=== PATIENT | male | born 1985 | race Hispanic/Latino ===

== ENCOUNTER 2020-03-18 18:17 | Emergency (ER) | payer OTHER ==
[2020-03-18] MEDS ORDERED: KETOROLAC TROMETHAMINE 60 MG/2 ML VIAL ONE (18:44)
== END 2020-03-18 19:53 | disposition home or self-care (01) ==
LOC: EDH 18:17
DX: S62.337A Displaced fracture of neck of fifth metacarpal bone, left hand, initial encounter for closed fracture (principal); W01.198A Fall on same level from slipping, tripping and stumbling with subsequent striking against other object, initial encounter; Y93.89 Activity, other specified; Y92.89 Other specified places as the place of occurrence of the external cause; Y99.8 Other external cause status
CPT/HCPCS: 29125; 73130; 96372; 99283; J1885

== ENCOUNTER 2020-06-12 15:02 | Emergency (ER) | payer MEDICAID ==
[2020-06-12] MEDS ORDERED: ACETAMINOPHEN 325 MG TAB ONE (16:00)
[2020-06-12 16:17] LABS: BASOPHILS % (AUTO) 0.3 % (0.0-5.0); EOSINOPHILS % (AUTO) 0.3 % (0.0-8.0); HEMATOCRIT 45.1 % (42-54); LYMPHOCYTES % (AUTO) 33.1 % (21.0-51.0); MEAN CORPUSCULAR HEMOGLOBIN 31.4 pg (27.0-33.0); MEAN CORPUSCULAR HGB CONC 34.4 g/dL (32.0-36.0); MEAN CORPUSCULAR VOLUME 91.3 fL (79-99); MONOCYTES % (AUTO) 7.2 % (3.0-13.0); PLATELET COUNT (AUTO) 255 K/uL (130-400); RED BLOOD CELL COUNT(AUTO) 4.94 MIL/uL (4.50-6.20); RED CELL DISTRIBUTION WIDTH 13.7 % (11.0-15.5); WHITE BLOOD COUNT (AUTO) 7.2 K/uL (4.8-10.8)
[2020-06-12 16:28] LABS: ABG BASE EXCESS 0.9 mmol/L (-2.0-3.0); ABG HCO3 24.5 mmol/L (21.0-28.0); ABG OXYGEN SATURATION 98.5 % (95.0-99.0); ABG PCO2 36 mmHg (35-48)
[2020-06-12 16:47] LABS: CREATININE 1.1 mg/dL (0.5-1.5)
[2020-06-12 16:52] LABS: ALBUMIN 3.5 g/dL (3.5-5.0); BILIRUBIN,TOTAL 0.4 mg/dL (0.2-1.0)
[2020-06-12 16:56] LABS: B-TYPE NATRIURETIC PEPTIDE < 5 pg/mL (0-100)
== END 2020-06-12 17:46 | disposition home or self-care (01) ==
LOC: EDH 15:02
DX: U07.1 COVID-19 (principal); R06.02 Shortness of breath; Z72.0 Tobacco use
CPT/HCPCS: 36415; 36600; 71045; 80053; 82803; 83605; 83880; 84484; 85025; 87040; 93005

== ENCOUNTER 2020-08-03 08:25 | Emergency (ER) | payer MEDICAID ==
[2020-08-03 08:55] LABS: APPEARANCE,URINE Cloudy (CLEAR); BILIRUBIN,URINE Negative (NEGATIVE); COLOR,URINE Yellow (YELLOW); GLUCOSE, URINE (UA) Negative (NEGATIVE); KETONES,URINE Trace mg/dL (NEGATIVE); LEUKOCYTE ESTERASE ,URINE Negative (NEGATIVE); NITRATE,URINE Negative (NEGATIVE); OCCULT BLOOD,URINE Negative (NEGATIVE); PROTEIN,URINE Negative (NEGATIVE)
[2020-08-03 09:03] LABS: AMPHET/METH SCREEN,URINE NEGATIVE (NEGATIVE); BARBITURATE SCREEN, URINE NEGATIVE (NEGATIVE); BENZODIAZEPINES SCREEN,URINE NEGATIVE (NEGATIVE); CANNABINOID SCREEN,URINE POSITIVE (NEGATIVE); COCAINE SCREEN,URINE NEGATIVE (NEGATIVE); OPIATE SCREEN,URINE NEGATIVE (NEGATIVE); PHENCYCLIDINE SCREEN,URINE NEGATIVE (NEGATIVE)
[2020-08-03 09:07] LABS: BACTERIA,URINE None Seen /HPF (None Seen); RBC,URINE 0-1 /HPF (0-1); SQUAMOUS EPITHELIAL CELL,UR 0-2 /HPF (0-2); WBC,URINE 0-1 /HPF (0-1)
[2020-08-03 09:08] LABS: AMORPHOUS SEDIMENT,UR Many /LPF (None Seen)
== END 2020-08-03 10:44 | disposition left against medical advice (07) ==
LOC: EDH 08:25
DX: M54.5 Low back pain (principal); F14.10 Cocaine abuse, uncomplicated; Z72.0 Tobacco use
CPT/HCPCS: 80305; 81001

== ENCOUNTER 2021-01-28 09:14 | Emergency (ER) | payer MEDICAID ==
[~2021-01-28] VITALS: Ht 172.7 cm; Wt 70.3 kg
[2021-01-28 09:16] VITALS: BP 112/84
[2021-01-28 09:50] VITALS: BP 120/70
[2021-01-28] MEDS ORDERED: ESOM40CA54 PO (10:38)
[2021-01-28] MEDS ORDERED: IBUP-2070 PO (10:38)
[2021-01-28] MEDS ORDERED: KETOROLAC 60 MG VIAL (30MG/ML) ONE (10:40)
[2021-01-28] MEDS ORDERED: HYDROCODONE/ACETAMINOPHEN 5/325 MG TAB ONE (10:40)
== END 2021-01-28 10:49 | disposition home or self-care (01) ==
LOC: EDH 09:14
DX: K21.9 Gastro-esophageal reflux disease without esophagitis (principal); J02.9 Acute pharyngitis, unspecified; Z20.822 Contact with and (suspected) exposure to COVID-19
CPT/HCPCS: 87635; 87880; 99283; C9803; J1885

== ENCOUNTER → 2021-04-24 | Outpatient (CLI) | payer MEDICAID ==
[~2021-04-24] MED LIST: ESOM40CA54 PO; IBUP-2070 PO
== END | disposition home or self-care (01) ==
LOC: RAH 08:49
PROVIDERS: ATTEND Internal Medicine Gastroenterology
DX: K21.9 Gastro-esophageal reflux disease without esophagitis (principal)
CPT/HCPCS: 74240

== ENCOUNTER 2021-10-16 16:01 | Emergency (ER) | payer MEDICAID ==
[~2021-10-16] VITALS: Ht 172.7 cm; Wt 74.8 kg
[2021-10-16 16:45] LABS: BASOPHILS % (AUTO) 0.1 % (0.0-5.0); EOSINOPHILS % (AUTO) 0.1 % (0.0-8.0); HEMATOCRIT 45.1 % (42-54); LYMPHOCYTES % (AUTO) 3.2 % (21.0-51.0); MEAN CORPUSCULAR HEMOGLOBIN 31.1 pg (27.0-33.0); MEAN CORPUSCULAR HGB CONC 34.6 g/dL (32.0-36.0); MEAN CORPUSCULAR VOLUME 89.8 fL (79-99); MONOCYTES % (AUTO) 3.3 % (3.0-13.0); PLATELET COUNT (AUTO) 381 K/uL (130-400); RED BLOOD CELL COUNT(AUTO) 5.02 MIL/uL (4.50-6.20); RED CELL DISTRIBUTION WIDTH 13.4 % (11.0-15.5); WHITE BLOOD COUNT (AUTO) 14.8 K/uL (4.8-10.8)
[2021-10-16 16:56] LABS: CREATININE 0.9 mg/dL (0.5-1.5); POTASSIUM 3.9 mmol/L (3.5-5.1)
[2021-10-16 17:00] LABS: ALBUMIN 3.7 g/dL (3.5-5.0); BILIRUBIN,TOTAL 0.7 mg/dL (0.2-1.0); TOTAL PROTEIN, SERUM 6.7 g/dL (6.0-8.3)
[2021-10-16] MEDS ORDERED: 0.9%NACL 1000ML 1,000 ML IV ONE (17:00)
[2021-10-16] MEDS ORDERED: MORPHINE 2 MG SYG IVP ONE (17:30)
[2021-10-16] MEDS ORDERED: ONDANSETRON 4MG INJ IVP ONE (17:30)
[2021-10-16] MEDS ORDERED: KETOROLAC 15MG/ML VIAL (15MG/ML) IV ONE (17:30)
[2021-10-16 17:32] LABS: APPEARANCE,URINE Clear (CLEAR); BILIRUBIN,URINE Negative (NEGATIVE); COLOR,URINE Yellow (YELLOW); GLUCOSE, URINE (UA) Negative (NEGATIVE); KETONES,URINE >=160 mg/dL (NEGATIVE); LEUKOCYTE ESTERASE ,URINE Negative (NEGATIVE); NITRATE,URINE Negative (NEGATIVE); OCCULT BLOOD,URINE Negative (NEGATIVE); PROTEIN,URINE Trace mg/dL (NEGATIVE)
[2021-10-16 17:41] LABS: AMPHET/METH SCREEN,URINE NEGATIVE (NEGATIVE); BARBITURATE SCREEN, URINE NEGATIVE (NEGATIVE); BENZODIAZEPINES SCREEN,URINE NEGATIVE (NEGATIVE); CANNABINOID SCREEN,URINE POSITIVE (NEGATIVE); COCAINE SCREEN,URINE NEGATIVE (NEGATIVE); OPIATE SCREEN,URINE NEGATIVE (NEGATIVE); PHENCYCLIDINE SCREEN,URINE NEGATIVE (NEGATIVE)
[2021-10-16 17:42] LABS: BACTERIA,URINE Rare /HPF (None Seen); RBC,URINE 0-1 /HPF (0-1); SQUAMOUS EPITHELIAL CELL,UR 0-2 /HPF (0-2); WBC,URINE 0-1 /HPF (0-1)
[2021-10-16] MEDS ORDERED: BACI1CAP6 PO (18:48)
[2021-10-16] MEDS ORDERED: ONDA4TAB10 PO (18:48)
[2021-10-16] MEDS ORDERED: LOPE2 PO (18:48)
[2021-10-16] MEDS ORDERED: DICY20TA2 PO (18:48)
[2021-10-16 18:56] VITALS: BP 133/75
== END 2021-10-16 19:02 | disposition home or self-care (01) ==
LOC: EDH 16:01
DX: K52.9 Noninfective gastroenteritis and colitis, unspecified (principal); Z79.899 Other long term (current) drug therapy
CPT/HCPCS: 36415; 80053; 80305; 81001; 83690; 85025; 96361; 96374; 96375; 99284; J1885; J2405; J7030

== ENCOUNTER 2022-01-24 15:24 | Emergency (ER) | payer MEDICAID ==
[~2022-01-24] VITALS: Ht 172.7 cm; Wt 72.6 kg
[~2022-01-24 15:24] MED LIST changes: +BACI1CAP6 PO; +DICY20TA2 PO; +LOPE2 PO; +ONDA4TAB10 PO
[2022-01-24 15:26] VITALS: BP 123/73
[2022-01-24] MEDS ORDERED: L.E.T. GEL 3ML SYG TP ONE ×2 (16:14→16:30)
[2022-01-24] MEDS ORDERED: IBUPROFEN 800 MG TAB ONE (16:14)
[2022-01-24] MEDS ORDERED: TETANUS/DIPHTHERIA TOXOID [ADULT] 0.5 ML VIAL IM ONE ×2 (16:15→16:30)
[2022-01-24] MEDS ORDERED: IBUPROFEN 800 MG TAB PO ONE (16:30)
[2022-01-24] MEDS ORDERED: ACETAMINOPHEN 500 MG TABLET PO ONE (16:30)
[2022-01-24] MEDS ORDERED: ACET-2247 PO (16:51)
== END 2022-01-24 17:24 | disposition home or self-care (01) ==
LOC: EDH 15:24
DX: S01.01XA Laceration without foreign body of scalp, initial encounter (principal); Z79.899 Other long term (current) drug therapy; W22.8XXA Striking against or struck by other objects, initial encounter; Y93.89 Activity, other specified; Y92.89 Other specified places as the place of occurrence of the external cause; Y99.8 Other external cause status
CPT/HCPCS: 12002; 90471; 90714

== ENCOUNTER 2022-01-31 20:25 | Emergency (ER) | payer MEDICAID ==
[~2022-01-31] VITALS: Ht 172.7 cm; Wt 77.1 kg
[~2022-01-31 20:25] MED LIST changes: +ACET-2247 PO
[2022-01-31 20:29] VITALS: BP 144/82
== END 2022-01-31 21:42 | disposition home or self-care (01) ==
LOC: EDH 20:25
DX: S01.81XD Laceration without foreign body of other part of head, subsequent encounter (principal); Z79.1 Long term (current) use of non-steroidal anti-inflammatories (NSAID); Z79.899 Other long term (current) drug therapy; Z87.19 Personal history of other diseases of the digestive system; X58.XXXD Exposure to other specified factors, subsequent encounter
CPT/HCPCS: 99281

== ENCOUNTER 2022-03-04 03:54 | Emergency (ER) | payer MEDICAID ==
[~2022-03-04] VITALS: Ht 172.7 cm; Wt 69.4 kg
[2022-03-04] MEDS ORDERED: PANTOPRAZOLE 40 MG/VIAL ONE (04:09)
[2022-03-04] MEDS ORDERED: ONDANSETRON 4MG INJ ONE (04:11)
[2022-03-04 04:20] LABS: BASOPHILS % (AUTO) 0.2 % (0.0-5.0); EOSINOPHILS % (AUTO) 0.6 % (0.0-8.0); HEMATOCRIT 46.7 % (42-54); LYMPHOCYTES % (AUTO) 7.2 % (21.0-51.0); MEAN CORPUSCULAR HEMOGLOBIN 30.7 pg (27.0-33.0); MEAN CORPUSCULAR HGB CONC 35.1 g/dL (32.0-36.0); MEAN CORPUSCULAR VOLUME 87.3 fL (79-99); MONOCYTES % (AUTO) 6.9 % (3.0-13.0); NEUTROPHILS % (AUTO) 84.7 % (40.0-77.0); PLATELET COUNT (AUTO) 317 K/uL (130-400); RED BLOOD CELL COUNT(AUTO) 5.35 MIL/uL (4.50-6.20); RED CELL DISTRIBUTION WIDTH 13.7 % (11.0-15.5); WHITE BLOOD COUNT (AUTO) 14.5 K/uL (4.8-10.8)
[2022-03-04 04:30] LABS: CREATININE 1.1 mg/dL (0.5-1.5); POTASSIUM 3.5 mmol/L (3.5-5.1)
[2022-03-04] MEDS ORDERED: 0.9%NACL 1000ML 1,000 ML IV SCH (04:30)
[2022-03-04] MEDS ORDERED: PANTOPRAZOLE 40 MG/VIAL IVP ONE (04:30)
[2022-03-04] MEDS ORDERED: ONDANSETRON 4MG INJ IVP ONE (04:30)
[2022-03-04 04:35] LABS: ALBUMIN 4.2 g/dL (3.5-5.0); TOTAL PROTEIN, SERUM 7.6 g/dL (6.0-8.3)
[2022-03-04] MEDS ORDERED: DICY20TA2 PO (06:01)
[2022-03-04] MEDS ORDERED: ONDA4TAB10 PO (06:01)
[2022-03-04 06:04] VITALS: BP 125/74
== END 2022-03-04 06:18 | disposition home or self-care (01) ==
LOC: EDH 03:54
DX: K52.9 Noninfective gastroenteritis and colitis, unspecified (principal); E86.9 Volume depletion, unspecified; Z79.899 Other long term (current) drug therapy
CPT/HCPCS: 99284; 74176; 96374; 96361; 96375; 80053; 83690; 85025; 36415; J7030; J2405; S0164; C9113

== ENCOUNTER 2022-08-19 11:46 | Emergency (ER) | payer MEDICAID ==
[~2022-08-19] VITALS: Ht 172.7 cm; Wt 68.0 kg
[2022-08-19 12:54] LABS: BASOPHILS % (AUTO) 0.2 % (0.0-5.0); EOSINOPHILS % (AUTO) 0.1 % (0.0-8.0); HEMATOCRIT 43.4 % (42-54); LYMPHOCYTES % (AUTO) 4.3 % (21.0-51.0); MEAN CORPUSCULAR HEMOGLOBIN 31.1 pg (27.0-33.0); MEAN CORPUSCULAR HGB CONC 35.3 g/dL (32.0-36.0); MEAN CORPUSCULAR VOLUME 88.2 fL (79-99); MONOCYTES % (AUTO) 4.6 % (3.0-13.0); NEUTROPHILS % (AUTO) 90.5 % (40.0-77.0); PLATELET COUNT (AUTO) 248 K/uL (130-400); RED BLOOD CELL COUNT(AUTO) 4.92 MIL/uL (4.50-6.20); RED CELL DISTRIBUTION WIDTH 13.9 % (11.0-15.5); WHITE BLOOD COUNT (AUTO) 11.2 K/uL (4.8-10.8)
[2022-08-19 12:56] LABS: APPEARANCE,URINE CLEAR (CLEAR); BILIRUBIN,URINE NEGATIVE (NEGATIVE); COLOR,URINE LIGHT-YELLOW (YELLOW); GLUCOSE, URINE (UA) NEGATIVE (NEGATIVE); KETONES,URINE 10 mg/dL (NEGATIVE); LEUKOCYTE ESTERASE ,URINE NEGATIVE Leu/uL (NEGATIVE); NITRATE,URINE NEGATIVE (NEGATIVE); OCCULT BLOOD,URINE NEGATIVE (NEGATIVE); PROTEIN,URINE NEGATIVE (NEGATIVE); UROBILINOGEN,URINE 0.2 mg/dL (0.2-1.0)
[2022-08-19 12:59] LABS: POTASSIUM 3.2 mmol/L (3.5-5.1)
[2022-08-19 12:59] LABS: RBC,URINE 0-1 /HPF (0-1); WBC,URINE 0-1 /HPF (0-1)
[2022-08-19 13:03] LABS: ALBUMIN 3.7 g/dL (3.5-5.0); TOTAL PROTEIN, SERUM 6.4 g/dL (6.0-8.3)
[2022-08-19] MEDS ORDERED: 0.9%NACL 1000ML 1,000 ML IV ONE ×2 (13:30→15:00)
[2022-08-19] MEDS ORDERED: MORPHINE 4 MG SYG IVP ONE (13:30)
[2022-08-19] MEDS ORDERED: FAMOTIDINE 20MG VIAL IV ONE (13:30)
[2022-08-19] MEDS ORDERED: ONDANSETRON 4MG INJ IVP ONE (13:30)
[2022-08-19] MEDS ORDERED: POTASSIUM BICARB/CIT AC 25 MEQ TABLET.EFF PO ONE (13:30)
[2022-08-19] MEDS ORDERED: DICY20TA2 PO (14:58)
[2022-08-19] MEDS ORDERED: FAMO-136 PO (14:58)
[2022-08-19] MEDS ORDERED: ONDA4TAB10 PO (14:58)
[2022-08-19] MEDS ORDERED: BACI1CAP6 PO (14:58)
[2022-08-19 15:09] VITALS: BP 112/60
[2022-08-19 18:10] LABS: AMPHET/METH SCREEN,URINE NEGATIVE (NEGATIVE); BARBITURATE SCREEN, URINE NEGATIVE (NEGATIVE); BENZODIAZEPINES SCREEN,URINE NEGATIVE (NEGATIVE); CANNABINOID SCREEN,URINE POSITIVE (NEGATIVE); COCAINE SCREEN,URINE NEGATIVE (NEGATIVE); OPIATE SCREEN,URINE NEGATIVE (NEGATIVE); PHENCYCLIDINE SCREEN,URINE NEGATIVE (NEGATIVE)
== END 2022-08-19 15:41 | disposition home or self-care (01) ==
LOC: EDH 11:46
DX: K52.9 Noninfective gastroenteritis and colitis, unspecified (principal); Z79.899 Other long term (current) drug therapy
CPT/HCPCS: 99285; 74176; 96374; 96361; 96375; 80053; 80305; 83690; 85025; 36415; 81001; J7030 ×2; J2405; J2270; S0028; J3490

== ENCOUNTER 2024-03-15 10:03 | Emergency (ER) | payer MEDICAID ==
[~2024-03-15] VITALS: Ht 172.7 cm; Wt 68.0 kg
[~2024-03-15 10:03] MED LIST changes: -ESOM40CA54 PO; +ESOM40CA66 PO; +FAMO-136 PO; +ONDA-243 PO; -ONDA4TAB10 PO
[2024-03-15 10:05] VITALS: BP 107/63; PULSE 56; RESP 16; TEMP 98.1
--- NOTE | 2024-03-15 10:19 | ERN ---
General Chief Complaint: FOOT INJURY/PAIN Stated Complaint: RIGHT FOOT PAIN Time Seen by : 10:06 Time Seen by Midlevel: 10:06 Source: patient History of Present Illness Initial Comments Patient is a 38-year-old male with no significant past medical history presenting with right foot pain. Patient states last night he was running down the stairs when he accidentally hit a vacuum on his way down. He has most of his pain centered around his 2nd and 3rd digit. Denies any other injury. Denies any other concern at this time Allergies: Coded Allergies: No Known Drug Allergies (Unverified Allergy, Unknown, 01/28/21) Home Meds Active Scripts Ketorolac Tromethamine (Ketorolac Tromethamine) 10 Mg Tablet, 10 MG PO BID for 5 Days, #10 TAB Prov:TOMI MEZA 03/15/24 Famotidine (Pepcid) 20 Mg Tablet, 20 MG PO BID, #15 TAB Prov:MIMI CHEEMA 08/19/22 Bacillus Coagulans (Probiotic) 1 Each Capsule.dr, 1 EACH PO DAILY, #30 CAP Prov:MIMI CHEEMA 08/19/22 Dicyclomine HCl (Bentyl) 20 Mg Tab, 20 MG PO TID PRN for ABDOMINAL PAIN, #15 TAB Prov:MIMI CHEEMA 08/19/22 Ondansetron (Ondansetron Odt) 4 Mg Tab.rapdis, 4 MG PO TID PRN for NAUSEA/VOMITING, #10 TAB Prov:MIMI CHEEMA 08/19/22 Dicyclomine HCl (Bentyl) 20 Mg Tab, 20 MG PO TIDP PRN for ABDOMINAL PAIN, #12 TAB 0 Refills Prov:KRISTINA REY MD 03/04/22 Ondansetron (Ondansetron Odt) 4 Mg Tab.rapdis, 4 MG PO TIDP PRN for NAUSEA/VOMITING, #12 TAB 0 Refills Prov:KRISTINA REY MD 03/04/22 Acetaminophen (Tylenol) 325 Mg Tablet, 650 MG PO Q4HPRN, #50 TAB Prov:NORMAN BUCKLEY 01/24/22 Loperamide HCl (Imodium) 2 Mg Cap, 2 MG PO TID PRN for DIARRHEA, #15 CAP Prov:MIMI CHEEMA 10/16/21 Bacillus Coagulans (Probiotic) 1 Each Capsule.dr, 1 EACH PO DAILY, #30 CAP Prov:MIMI CHEEMA [facility] 10/16/21 Dicyclomine HCl (Bentyl) 20 Mg Tab, 20 MG PO TID PRN for ABDOMINAL PAIN, #15 TAB Prov:MIMI CHEEMA [facility] 10/16/21 Ondansetron (Ondansetron Odt) 4 Mg Tab.rapdis, 4 MG PO TID, #15 TAB Prov:FITTINGMIMI [facility] 10/16/21 Esomeprazole Magnesium (Esomeprazole Magnesium) 40 Mg Capsule.dr, 40 MG PO DAILY, #30 CAP Prov:YANDY THOMPSON MD 01/28/21 Ibuprofen (Ibuprofen) 600 Mg Tablet, 600 MG PO Q6H PRN for Pain/fever, #30 TAB Prov:YANDY THOMPSON MD 01/28/21 Past Medical History Past Medical History: GERD Medical History Other: GASTRITIS Past Surgical History: None Family History Family History: Negative Social History Social History: Lives with family, Other ROS Dictation CONSTITUTIONAL: Negative except for HPI HEAD/FACE: Negative except for HPI EENT: Negative except for HPI RESPIRATORY: Negative except for HPI GASTROINTESTINAL/ABDOMINAL: Negative except for HPI GENITOURINARY: Negative except for HPI MUSCULOSKELETAL: Negative except for HPI INTEGUMENTARY: Negative except for HPI NEUROLOGICAL/PSYCH: Negative except for HPI HEMATOLOGIC/LYMPHATIC: Negative except for HPI All Systems Negative, Except as noted above. 13 point review of systems assessed and all negative except for above. Physical Exam Physical Exam Dictation PHYSICAL EXAM: GENERAL: alert,, awake oriented x 3 HEENT: EOMI, Sclera non icteric, moist mucosa NECK: Supple, no JVD, trachea midline LUNGS: Clear breath sounds bilaterally. No wheezes HEART: Regular rate and rhythm. Normal S1 and S2, without murmurs ABD: Abdomen soft, nontender. Bowel sounds present EXT: Tenderness, swelling, and bruising over the proximal 3rd digit, range of motion restricted secondary to pain, normal capillary refill, sensation intact, NEURO: Alert and oriented to person, follows commands MDM MDM: Patient is a 38-year-old male with no significant past medical history presenting with right foot pain. Patient states last night he was running down the stairs when he accidentally hit a vacuum on his way down. He has most of his pain centered around his 2nd and 3rd digit. Denies any other injury. Denies any other concern at this time. On physical examination patient has bruising/tenderness/swelling to the proximal 3rd digit. He has full range motion of all his toes. Sensation is intact. Capillary refill is normal. 2+ PT, DP pulses. X-ray of the right foot reveals a subtle nondisplaced fracture of the right 3rd toe. Toe was ganesh-taped and patient was advised to wear a hard-soled shoe. Patient agrees and will be discharged home. Differential diagnosis: There are no social concerns with this patient. Prescription drug management Prescriptions will include: Toradol Medical management and examination interpretation discussions were had by me with other qualified healthcare professionals as indicated for the patient's care. ED Course Orders Procedure Category Date Status Time Foot Comp 3+Vws Rt RAD 03/15/24 Resulted 10:10 Ketorolac PHA 03/15/24 Complete Tromethamine 30mg/Ml 11:00 *Nursing CPOE 03/15/24 Transmitted Communication: 10:31 Current Medications Medications (Trade) Dose Ordered Sig/Nury Route PRN Reason Start Time Stop Time Status Last Admin Dose Admin Ketorolac Tromethamine (toRADol) 30 mg ONCE ONCE IM 03/15/24 11:00 03/15/24 11:01 DC Vital Signs Date Time Temp Pulse Resp B/P (MAP) Pulse Ox O2 Delivery O2 Flow Rate FiO2 03/15/24 10:05 98.1 56 16 107/63 96 Room Air 0 [place] [id number] [place] [id number] IMAGING REPORT Signed PATIENT: ANURAG CLEMENTS MR#: [id number] : 1985 SEX: M AGE: 38 LOCATION: [facility] ORDER 1011 STATUS: REG ER REPORT#: [id number] SERVICE 1010 REASON: right foot pain ORDERING PHYSICIAN: TOMI MEZA PROCEDURE: FT 3VW RT - FOOT COMP 3+VWS RT FOOT COMP 3+VWS RT HISTORY: Right foot pain COMPARISON: None TECHNIQUE: 3 images of right foot were obtained. FINDINGS: There is no acute displaced fracture or dislocation. There is soft tissue swelling. Degenerative changes are seen. IMPRESSION: 1. Findings as described above. DICTATED BY: JAZZ JURADO MD DATE: 03/15/241029 ELECTRONICALLY SIGNED BY: JAZZ JURADO MD DATE: 03/15/24 1033 DX & DISP Disposition: Discharge Departure Impression: Primary Impression: Toe fracture, right Condition: Stable Scripts Ketorolac Tromethamine (Ketorolac Tromethamine) 10 Mg Tablet 10 MG PO BID for 5 Days, #10 TAB Prov: TOMI MEZA 03/15/24 Additional Instructions: Your x-ray of the right foot reveals a small subtle fracture in the right 3rd toe. For these types of injuries there was no need for surgery or emergent intervention. Your toe was gaensh-taped together. Please wear a hard sole shoe for supportive management. Follow up with your primary care provider in 2-3 days for repeat evaluation. I have given you a prescription for Toradol which should help you with your pain. If you develop any new or worsening symptoms please report to the ER for further evaluation. Referrals: MARTHA MARIA (PCP) Time of Disposition: 11:08 I have reviewed the case, Diagnosis and Plan I performed the substantive portion of the visit. I have reviewed and personally made and approve the management plan that is documented in the note by myself or the TATE. I acknowledge for responsibility for the patient's management plan. TOMI MEZA Mar 15, 2024 10:19
--- NOTE | 2024-03-15 10:33 | HMCIMG ---
FOOT COMP 3+VWS RT HISTORY: Right foot pain COMPARISON: None TECHNIQUE: 3 images of right foot were obtained. FINDINGS: There is no acute displaced fracture or dislocation. There is soft tissue swelling. Degenerative changes are seen. IMPRESSION: 1. Findings as described above.
[2024-03-15] MEDS ORDERED: KETO10TA2 PO (11:10)
[2024-03-15] MEDS: ketOROlac 30MG VIAL (30MG/ML) IM ONE (11:42)
== END 2024-03-15 12:01 | disposition home or self-care (01) ==
LOC: EDH 10:03
DX: S92.521A Displaced fracture of middle phalanx of right lesser toe(s), initial encounter for closed fracture (principal); K21.9 Gastro-esophageal reflux disease without esophagitis; Z79.899 Other long term (current) drug therapy; W22.09XA Striking against other stationary object, initial encounter; Y93.02 Activity, running; Y92.89 Other specified places as the place of occurrence of the external cause; Y99.8 Other external cause status
CPT/HCPCS: 99283; 73630; 96372; J1885

== ENCOUNTER 2024-05-28 12:15 | Emergency (ER) | payer MEDICAID ==
[~2024-05-28] VITALS: Ht 172.7 cm; Wt 70.3 kg
[~2024-05-28 12:15] MED LIST changes: +KETO10TA2 PO
[2024-05-28] MEDS ORDERED: NEOMY SULF/BACITRA/POLYMYXIN B 1 EACH PACKET TP ONE (12:30)
[2024-05-28] MEDS ORDERED: ibuPROFEN 800 MG TAB PO ONE (12:30)
[2024-05-28] MEDS ORDERED: LIDOCAINE HCL 1% 20 ML VIAL INJ SCH (12:30)
--- NOTE | 2024-05-28 12:34 | ERN ---
ED Note History of Present Illness Stated Complaint: OTHER Chief Complaint: Foreign Body Time Seen by MD: 12:28 Dictation: PATIENT IS A 38-YEAR-OLD MALE HERE WITH COMPLAINTS OF A QUESTIONABLE FOREIGN BODY/GREAT FOOD TREE THORN TO THE RIGHT OCCIPUT AREA OF HIS SCALP1 HOUR PRIOR TO ARRIVAL. HE WAS WORKING AROUND THE TREAT WHEN HE BUMPED INTO IT AND FELT IT BREAK OFF UNDER HIS SKIN. HE DOES HAVE A TENDER AREA TO THE RIGHT PARIETAL AREA WITH POSSIBLE FOREIGN BODY. TETANUS SHOT IS UP TO DATE HE HAS NOT TAKEN ANYTHING PRIOR TO ARRIVAL FOR PAIN Allergies: Coded Allergies: No Known Drug Allergies (Unverified Allergy, Unknown, 01/28/21) Home Meds Active Scripts Ketorolac Tromethamine (Ketorolac Tromethamine) 10 Mg Tablet, 10 MG PO BID for 5 Days, #10 TAB Prov:TOMI MEZA 03/15/24 Famotidine (Pepcid) 20 Mg Tablet, 20 MG PO BID, #15 TAB Prov:MIMI CHEEMA 08/19/22 Bacillus Coagulans (Probiotic) 1 Each Capsule.dr, 1 EACH PO DAILY, #30 CAP Prov:MIMI CHEMEA 08/19/22 Dicyclomine HCl (Bentyl) 20 Mg Tab, 20 MG PO TID PRN for ABDOMINAL PAIN, #15 TAB Prov:MIMI CHEEMA 08/19/22 Ondansetron (Ondansetron Odt) 4 Mg Tab.rapdis, 4 MG PO TID PRN for NAUSEA/VOMITING, #10 TAB Prov:MIMI CHEEMA 08/19/22 Dicyclomine HCl (Bentyl) 20 Mg Tab, 20 MG PO TIDP PRN for ABDOMINAL PAIN, #12 TAB 0 Refills Prov:KRISTINA REY MD 03/04/22 Ondansetron (Ondansetron Odt) 4 Mg Tab.rapdis, 4 MG PO TIDP PRN for NAUSEA/VOMITING, #12 TAB 0 Refills Prov:KRISTINA REY MD 03/04/22 Acetaminophen (Tylenol) 325 Mg Tablet, 650 MG PO Q4HPRN, #50 TAB Prov:NORMAN BUCKLEY 01/24/22 Loperamide HCl (Imodium) 2 Mg Cap, 2 MG PO TID PRN for DIARRHEA, #15 CAP Prov:MIMI CHEEMAP 10/16/21 Bacillus Coagulans (Probiotic) 1 Each Capsule.dr, 1 EACH PO DAILY, #30 CAP Prov:MIMI CHEEMA [facility] 10/16/21 Dicyclomine HCl (Bentyl) 20 Mg Tab, 20 MG PO TID PRN for ABDOMINAL PAIN, #15 TAB Prov:MIMI CHEEMA [facility] 10/16/21 Ondansetron (Ondansetron Odt) 4 Mg Tab.rapdis, 4 MG PO TID, #15 TAB Prov:FITTINGMIMI [facility] 10/16/21 Esomeprazole Magnesium (Esomeprazole Magnesium) 40 Mg Capsule., 40 MG PO DAILY, #30 CAP Prov:YANDY THOMPSON MD 01/28/21 Ibuprofen (Ibuprofen) 600 Mg Tablet, 600 MG PO Q6H PRN for Pain/fever, #30 TAB Prov:YANDY THOMPSON MD 01/28/21 Past Medical History Past Medical History: No Pertinent History Additional Past Medical Hx: GASTRITIS Surgical History: None Family History: Negative Social History: Lives with family, Other RN Note Reviewed/Agreed w/PFSH: Yes Review of System Dictation CONSTITUTIONAL: NEGATIVE EXCEPT FOR HPI HEAD/FACE: NEGATIVE EXCEPT FOR HPI QUESTIONABLE FOREIGN BODY TO THE RIGHT OCCIPUT SCALP EENT: NEGATIVE EXCEPT FOR HPI RESPIRATORY: NEGATIVE EXCEPT FOR HPI GASTROINTESTINAL/ABDOMINAL: NEGATIVE EXCEPT FOR HPI GENITOURINARY: NEGATIVE EXCEPT FOR HPI MUSCULOSKELETAL: NEGATIVE EXCEPT FOR HPI INTEGUMENTARY: NEGATIVE EXCEPT FOR HPI NEUROLOGICAL/PSYCH: NEGATIVE EXCEPT FOR HPI HEMATOLOGIC/LYMPHATIC: NEGATIVE EXCEPT FOR HPI ALL SYSTEMS NEGATIVE, EXCEPT NOTED ABOVE. 13 POINT REVIEW OF SYSTEMS ASSESSED AND ALL NEGATIVE EXCEPT FOR ABOVE. Initial Vital Sign VS Vital Signs Date Time Temp Pulse Resp B/P (MAP) Pulse Ox O2 Delivery O2 Flow Rate FiO2 05/28/24 12:17 97.7 62 16 110/57 98 Room Air 0 05/28/24 12:23 21 Physical Exam Dictation VITAL SIGNS REVIEWED GENERAL APPEARANCE: ALERT, ORIENTED X 3, MODERATE ACUTE DISTRESS, WELL DEVELOPED, NOURISHED. HEAD AND FACE: RIGHT OCCIPUT WITH PUNCTURE WOUND AND WHAT APPEARS TO BE END OF A FOREIGN UNDER SCALP. PALPABLE TO TOUCH EYES: PERRL, PINK CONJUNCTIVAS, EYELID NO TRAUMA, ANTERIOR CHAMBER WITH ARCUS SENILIS. EARS: PINNAS INTACT AND NO SIGNS OF TRAUMA OR ERYTHEMA EAR CANALS CLEAR AND NO DISCHARGE TM NO ERYTHEMA NOSE: NO DISCHARGE, NO BLEEDING. OROPHARYNX: MOUTH NORMAL, TONGUE PINK, PHARYNX CLEAR,NO ERYTHEMA, TONSILS NO EXUDATES, NO ABSCESSES NOTED, MUCOUS MEMBRANE MOIST NECK: SUPPLE, NON-TENDER, NO THYROMEGALY, NO MASSES, NO JVD, NO BRUITS BREAST:DEFERRED CHEST:NO TENDERNESS, NO CREPITUS, NO PARADOXICAL MOVEMENT, NO RETRACTIONS LUNGS:CLEAR, WELL-VENTILATED, SYMMETRIC, NO RALES, NO WHEEZING, NO RHONCHI, NO STRIDOR, GOOD BREATH SOUNDS BILATERALLY HEART: REGULAR RATE, REGULAR RHYTHM, NO MURMUR, NO GALLOPS VASCULAR: NO PERIPHERAL EDEMA, ABDOMEN: SOFT, POSITIVE BOWEL SOUNDS, NONDISTENDED, NO GUARDING, NONTENDER, NO REBOUND, NO MASSES NO HEPATOMEGALY, NO SPLENOMEGALY, NO FELIX'S SIGN, NO HERNIAS. RECTAL: DEFERRED GENITAL: DEFERRED NEUROLOGICAL: NORMAL SPEECH, MOTOR FUNCTION INTACT, SENSORY FUNCTION INTACT MUSCULOSKELETAL: NECK NONTENDER, FULL RANGE OF MOTION, BACK NONTENDER, FULL RANGE OF MOTION, EXTREMITIES: NONTENDER, FULL RANGE OF MOTION SKIN: COLOR PINK, DRY, NO TURGOR, NO RASH, NO LACERATIONS, NO ABRASIONS, NO CONTUSIONS. LYMPHATIC: DEFERRED Results (Laboratory/Radiology) Labs Reviewed?: Yes ED Course ED Course Orders Procedure Category Date Status Time Lidocaine Hcl 1% 20ml PHA 05/28/24 In Process Vial (Lidocaine Hc 12:30 Neomy PHA 05/28/24 Complete Sulf/Bacitra/Polymyxin 12:30 Ibuprofen 800 Mg Tab PHA 05/28/24 Complete (Motrin) 12:30 Current Medications Medications (Trade) Dose Ordered Sig/Nury Route PRN Reason Start Time Stop Time Status Last Admin Dose Admin Ibuprofen (moTRIN) 800 mg ONCE ONCE PO 05/28/24 12:30 05/28/24 12:32 DC Lidocaine HCl (Lidocaine HCl 1% 20ml Vial) ONCE INJ 05/28/24 12:30 06/27/24 12:29 Neomycin/ Polymyxin/ Bacitracin (Triple Antibiotic Ointment) 1 appl ONCE ONCE TP 05/28/24 12:30 05/28/24 12:32 DC Vital Signs Date Time Temp Pulse Resp B/P (MAP) Pulse Ox O2 Delivery O2 Flow Rate FiO2 05/28/24 14:04 97.7 62 16 110/57 96 Room Air* 0 21 05/28/24 12:23 97.7 62 16 110/57 98 Room Air* 0 21 05/28/24 12:17 97.7 62 16 110/57 98 Room Air 0 1232/SPOKE WITH THE ULTRASOUND AND THEY SAID THORNS WOULD NOT BE RADIOPAQUE DENSITY ENOUGH TO SHOW UP ON ULTRASOUND Medical Decision Making MDM MEDICAL DECISION-MAKING, PATIENT LEFT WAITING ROOM AGAINST MEDICAL ADVICE WI THOUT SIGNING OUT. PATIENT CALLED X2 IN THE WAITING ROOM WITH NO ANSWER DX & DISP Disposition: AMA Departure Impression: Primary Impression: Puncture wound with foreign body of scalp, initial encounter Condition: Stable Referrals: MARTHA MARIA (PCP) Time of Disposition: 14:30 I have reviewed the case, and I agree with, Diagnosis and Plan JULIO CRUZ NP May 28, 2024 12:34
[2024-05-28 14:04] VITALS: BP 110/57; PULSE 62; RESP 16; TEMP 97.7; O2SAT 96
== END 2024-05-28 14:40 | disposition home or self-care (01) ==
LOC: EDH 12:15
DX: S01.04XA Puncture wound with foreign body of scalp, initial encounter (principal); Z79.899 Other long term (current) drug therapy; X58.XXXA Exposure to other specified factors, initial encounter; Y93.89 Activity, other specified; Y92.89 Other specified places as the place of occurrence of the external cause; Y99.8 Other external cause status
CPT/HCPCS: 99281